=== PATIENT | male | born 1970 | race Hispanic/Latino ===

== ENCOUNTER → 2017-02-13 | Day surgery (SDC) | payer OTHER ==
[~2017-02-13] VITALS: Ht 167.6 cm; Wt 83.9 kg
[~2017-02-13] MED LIST: ALLOPURINOL100 M1 PO; ATORVASTATIN CA10 M1 PO; METOPROLOL SUCC50 M2 PO
[2017-02-13 11:58] LABS: ABSOLUTE BASOPHIL COUNT 0 /CUMM (0.0-0.2); ABSOLUTE EOSINOPHIL COUNT 0.3 /CUMM (0.0-0.7); ABSOLUTE GRANULOCYTE CT 5.3 /CUMM (1.4-6.5); ABSOLUTE LYMPH COUNT 1.3 /CUMM (1.2-3.4); ABSOLUTE MONOCYTE COUNT 0.5 /CUMM (0.10-0.60); BASOPHIL % 0.5 % (0.0-2.0); EOSINOPHIL % 4.2 % (0-5); GRANULOCYTE % 71.1 % (42.2-75.2); MEAN CORPUSCULAR HGB 32.2 PG (27.0-31.0); MEAN CORPUSCULAR HGB CONC 33.8 G/DL (33.0-37.0); MEAN CORPUSCULAR VOLUME 95.3 FL (80.0-94.0); MEAN PLATELET VOLUME 7.3 FL (7.4-10.4); PLATELET COUNT 294 /CUMM (130-400); RBC DISTRIBUTION WIDTH 12.9 % (11.5-14.5); RED BLOOD CELL CT 4.83 /CUMM (4.70-6.10); WHITE BLOOD CELL COUNT 7.5 /CUMM (4.8-10.8)
--- NOTE | 2017-02-13 14:44 | Operative Report ---
See Addendum Operative/Inv Procedure Report Surgery Date: 02/13/17 Name of Procedure: Ventral umbilical hernia repair with mesh Pre-Operative Diagnosis: Incarcerated umbilical hernia Post-Operative Diagnosis: Same Estimated Blood Loss: scant Surgeon/Plug Assembler: WENDY JOHNSON MD /Josey HUERTA Anesthesia: laryngeal mask airway Implants: 6.4 cm ventral X mesh Operative/Procedure Note Note: After consent she is brought to the operating room laid supine. Gen. anesthesia obtained and his abdomen was prepped and draped. Skin below the umbilicus was symmetrical cocktail local anesthesia to create a. Umbilical nerve block. An infraumbilical curvilinear incision was made sharply. We dissected through the subcutaneous tissues tissues bluntly and circumferentially dissected umbilical stalk. Was transected with cautery thus exposing the defect. There is a large amount of incarcerated intraperitoneal fat. The neck of the defect was delineated with cautery which was then incised. We were then able to reduce the contents. The resultant defect was 2.5 cm in greatest dimension. I elected to repaired with mesh. Preperitoneal planes were created circumferentially and a 6.4 cm ventral X mesh placed. It was unraveled below the defect. Once the mesh was in proper position the fascia was closed over it was incorporating the anterior portion of the mesh to keep it centered. This was accomplished with interrupted 0 Maxon sutures. The umbilical stock was re-created with 3-0 Vicryl. Incision was then closed in layers of absorbable sutures. Sterile dressings were applied. Sponge and needle counts are correct CC: GIANNI JACOBSON APRN
== END ==
LOC: STS 01:32
PROVIDERS: Surgery
DX: K43.6 Other and unspecified ventral hernia with obstruction, without gangrene (principal); I10 Essential (primary) hypertension; M10.9 Gout, unspecified
CPT/HCPCS: 36415; 93005; 93010; J0690; J2250